=== PATIENT | female | born 1965 | race Caucasian/White ===

== ENCOUNTER 2020-01-08 12:26 | Emergency (ER) | payer OTHER, SELFPAY ==
[2020-01-08 12:30] VITALS: BMI 32.4
[2020-01-08 12:37] VITALS: BP 227/100; PULSE 59; RESP 16; TEMP 36.3; O2SAT 98
--- NOTE | 2020-01-08 12:51 | ED_ITS ---
HPI - Abdominal Pain General: Chief Complaint: Abdominal Pain Stated Complaint: abd pain Time Seen by Provider: 01/08/20 12:31 History of Present Illness: HPI narrative: 54-year-old female presents with complaints of right upper quadrant abdominal pain. She has had this intermittently for the last 6 months become progressively worse towards much more intense overnight it was extremely intense. She is not noticed any particular foods that seem to trigger it. She denies fever denies respiratory symptoms nausea but no vomiting no hematochezia melena hematemesis or coffee- ground emesis MD elicited complaint: abdominal pain Pertinent past history: other (Mild reflux) Onset (ago): month(s) (6 months increasing intensity) Pain Consistency: intermittent Location: RUQ Severity: severe Quality: cramping and aching Radiation: back Exacerbating factors: eating (The only food she is noted that causes trouble is mayonnaise) Associated Symptoms: Reports anorexia, bloating, GI cramping, heartburn and nausea; Denies chills, coffee ground emesis, diarrhea, dysuria, fever(s), hematemesis and vomiting Review of Systems Const: Denies: fever, chills, body aches, change in appetite, fatigue or malaise ENMT: Denies: throat pain, ear pain, nasal discharge or nasal congestion Card: Denies: chest pain, edema, shortness of breath on exertion or shortness of breath when lying down Resp: Denies: shortness of breath, productive cough or non-productive cough GI: Reports: abdominal pain, nausea, heartburn/indigestion, bloating and cramping; Denies: vomiting, vomiting blood, coffee grounds in vomit or diarrhea : Denies: flank pain, difficulty urinating, painful urination, urinary frequency or urinary urgency Skin/Breast: Denies: rash or itching PFSH ED PFSH: Social History Smoking and tobacco status: former smoker Physical Exam Const: COMMON NORMALS: no apparent distress GENERAL APPEARANCE: cooperative and comfortable ORIENTATION/CONSCIOUSNESS: Yes awake, Yes oriented to person, Yes oriented to place and Yes oriented to time HENMT: COMMON NORMALS: normocephalic, head/scalp atraumatic, hearing grossly normal bilaterally, external ears normal, EAC's normal, TM's normal bilaterally, nasal mucous membranes and turbinates normal, moist oral mucous membranes and oropharynx normal HEAD & SCALP: normocephalic and atraumatic NOSE: nasal mucous membranes and turbinates normal EXTERNAL EAR: Yes external ears normal EXTERNAL AUDITORY CANAL: EAC's normal TYMPANIC MEMBRANE: TM's normal bilaterally Eye: COMMON NORMALS: PERRL, EOMs intact bilaterally, conjunctivae normal and no scleral icterus CONJUNCTIVA: Yes conjunctivae normal PUPIL: Yes PERRL Neck/C-Spine: COMMON NORMALS: full ROM, no lymphadenopathy, supple and no JVD Lymph: LYMPHATIC: no lymphadenopathy noted and no lymphedema noted Resp: COMMON NORMALS: normal respiratory effort, no retractions, no use of accessory muscles and clear to auscultation bilaterally AUSCULTATION: clear to auscultation bilaterally Cardio: COMMON NORMALS: no JVD, regular rate, regular rhythm and no murmurs RATE: regular rate RHYTHM: regular rhythm GI: COMMON NORMALS: soft to palpation and no hepatosplenomegaly AUSCU LTATION: Yes normoactive bowel sounds PALPATION: Yes soft, No tender, No guarding and Yes no hepatosplenomegaly Extremity: COMMON NORMALS: normal to inspection, normal capillary refill, no clubbing, cyanosis or edema, no calf tenderness and no pedal edema Neuro: SENSORIUM/ORIENTATION: Yes oriented to person, Yes oriented to place and Yes oriented to time Skin: COMMON NORMALS: no rashes or lesions noted GENERAL SKIN EXAM: no rashes or lesions noted Course Vital Signs: Vital signs: Vital Signs Temperature 97.4 F L 01/08/20 12:37 Pulse Rate 74 01/08/20 17:26 Respiratory Rate 18 01/08/20 17:26 Blood Pressure 181/113 01/08/20 17:26 Pulse Oximetry 99 01/08/20 17:26 MDM - Abdominal Pain MDM Narrative: Medical decision making narrative: Patient has no acute findings on the CT. Pain is more superficial she remarks that her skin in the suppository in the right is actually numb she also notes she gets relief of the pain when she changes position position particularly by standing up there is no history of trauma. Reviewed the findings with her we will discharge her home on pain medications and get her set up with a primary care doctor for further follow-up she may need advanced imaging of the thoracic spine to rule out impinged thoracic nerve. Lab Data: Labs: Lab Results 01/08/20 01/08/20 01/08/20 Range/Units 13:02 13:02 13:54 WBC 6.5 (4.0-10.0) 10^3/ uL RBC 4.61 (4.1-5.3) 10^6/u L Hgb 14.8 (11.5-15.3) g/dL Hct 44.9 (37.0-47.0) % MCV 97.4 (81-99) fL MCH 32.1 (28.0-34.0) pg MCHC 33.0 (30.0-36.0) g/dL RDW 12.3 (12.1-15.1) % Plt Count 355 (130-400) 10^3/c mm MPV 9.6 (7.4-10.4) fL Neut % (Auto) 46.1 % Lymph % (Auto) 41.8 % [place] % (Auto) 9.4 % Eos % (Auto) 1.7 % Baso % (Auto) 0.8 % Neut # (Auto) 3.0 (1.8-7.7) 10^3/u L Lymph # (Auto) 2.7 (0.8-4.8) 10^3/u L [place] # (Auto) 0.6 (0.2-0.9) 10^3/u L Eos # (Auto) 0.1 (0.0-0.8) 10^3/u L Baso # (Auto) 0.1 (0.0-0.1) 10^3/u L Nucleated RBC % (a uto) 0 % Nucleated RBCs # 0.0 /100WBC Sodium 138 (136-145) mmol/L Potassium 4.1 (3.5-5.1) mmol/L Chloride 101 (98-107) mmol/L Carbon Dioxide 25 (22-29) mmol/L Anion Gap 16.1 (5-19) BUN 14 (6-20) mg/dL Creatinine 0.8 (0.5-0.9) mg/dL GFR Calculation 74.7 L (90-130) mL/min Glucose 106 (65-115) mg/dL Calculated Osmolal ity 283 L (285-295) mOsm/k g Calcium 10.2 (8.5-10.5) mg/dL Total Bilirubin 0.6 (0.15-1.2) mg/dL AST 24 (0-32) U/L ALT 24 (0-33) U/L Alkaline Phosphata se 56 (35-105) IU/L Total Protein 7.8 (6.6-8.7) g/dL Albumin 4.6 (3.5-5.2) g/dL Globulin 3.2 (1.3-4.6) g/dL Lipase 15 (13-60) U/L Urine Color Yellow (Yellow) Urine Appearance Clear (CLEAR) Urine pH 7 (5-7) Ur Specific Gravit y 1.010 (1.005-1.030) Urine Protein Neg (Negative) Urine Glucose (UA) Norm (Normal) Urine Ketones Negative (Negative) Urine Blood 2+ H (Negative) Urine Nitrate Negative (Negative) Urine Bilirubin Neg (NEGATIVE) Urine Urobilinogen Norm (Negative) mg/dL Ur Leukocyte Mariajose ase Negative (Negative) Urine RBC 5-10 H (0-2) /hpf Urine WBC 0-4 H (0-5) /hpf Ur Squamous Epith Cells 5-10 H (0-5) Urine Bacteria Trace (NONE) Discharge Plan Discharge Patient Disposition: Home, Self-Care Clinical Impression: Acute right flank pain Condition: Stable Prescriptions: New hydrocodone-acetaminophen 5-325 mg tablet 1 tab PO Q6H PRN (Reason: pain) Qty: 25 RF: 0 Zofran 4 mg tablet 4 mg PO Q6H PRN (Reason: nausea and vomiting) Qty: 20 RF: 0 No Action metoprolol tartrate 25 mg Tablet 25 mg PO DAILY RF: 0 Tylenol 325 mg Tablet 325 mg PO QID PRN (Reason: Pain) RF: 0 magnesium 200 mg Tablet 200 mg PO DAILY RF: 0 28 mg iron- 800 mcg Tablet 1 tab PO DAILY RF: 0 Discharge Orders: Discharge Order (Routine); Ordered 01/08/20 Ordered By: Wiliam Rivera Discharge Diet: Advance as tolerated Discharge Activity: Increase activity as tolerated Patient Instructions: Cholecystitis (ED), Abdominal Pain (ED) Discharge Date/Time: 01/08/20 17:26 Coding Level of Care Code ED Galley Stripper for Rebag Fwd Exam Comprehensive
--- NOTE | 2020-01-08 12:53 | US_ITS ---
WS: [id number] ULTRASOUND ABDOMEN LIMITED CLINICAL INFORMATION: Right upper quadrant abdominal pain COMPARISON: None. FINDINGS: Liver Size: Normal. Craniocaudal length: 13.4 cm. Echogenicity: Normal. Surface nodularity: None. Mass (size and location): None. Bile ducts Intrahepatic ducts: Normal. Common bile duct diameter: 0.3 cm. Gallbladder Normal. Gallstones: None. Gallbladder sludge: None. Gallbladder wall thickening: None. Pericholecystic fluid: None. Sonographic Ferrari sign: Absent. Pancreas Normal as visualized. Right kidney: Normal. Hydronephrosis: None. Size: 10.7 cm x 4.4 cm x 3.9 cm. Abdominal aorta and IVC Visualized portions are normal. Ascites: None. US/US gall bladder [id number] IMPRESSION: Normal abdominal ultrasound
[2020-01-08 13:08] LABS: Basophils # 0.1 10^3/uL (0.0-0.1); Basophils % 0.8 %; Eosinophils # 0.1 10^3/uL (0.0-0.8); Eosinophils % 1.7 %; Hematocrit 44.9 % (37.0-47.0); Hemoglobin 14.8 g/dL (11.5-15.3); Lymphocytes # 2.7 10^3/uL (0.8-4.8); Lymphocytes % 41.8 %; Mean Corpuscular Hemoglobin 32.1 pg (28.0-34.0); Mean Corpuscular Volume 97.4 fL (81-99); Mean Platelet Volume 9.6 fL (7.4-10.4); Monocytes # 0.6 10^3/uL (0.2-0.9); Monocytes % 9.4 %; Neutrophils % 46.1 %; Nucleated Red Blood Cells % 0 %; Platelet Count 355 10^3/cmm (130-400); Red Blood Count 4.61 10^6/uL (4.1-5.3); Red Cell Distribution Width 12.3 % (12.1-15.1); White Blood Count 6.5 10^3/uL (4.0-10.0)
[2020-01-08] MEDS: ondansetron 2 mg/ML SDV 2 mL 4 MG IVP (13:18)
[2020-01-08 13:19] VITALS: RESP 16
[2020-01-08] MEDS: sodium chloride 0.9% 1,000 ML 999 ML IV (13:19)
[2020-01-08] MEDS: morphine 4 mg/mL SDV 1 mL IVP (13:19)
[2020-01-08 13:21] LABS: Alanine Aminotransferase 24 U/L (0-33); Albumin Level 4.6 g/dL (3.5-5.2); Alkaline Phosphatase 56 IU/L (35-105); Anion Gap 16.1 (5-19); Aspartate Amino Transferase 24 U/L (0-32); Blood Urea Nitrogen 14 mg/dL (6-20); Calcium 10.2 mg/dL (8.5-10.5); Carbon Dioxide 25 mmol/L (22-29); Chloride 101 mmol/L (98-107); Creatinine Clr Calc Pharmacy 88.3043; Globulin 3.2 g/dL (1.3-4.6); Glomerular Filtration Rate 74.7 mL/min (90-130); Glucose 106 mg/dL (65-115); Lipase 15 U/L (13-60); Osmolality Calculated 283 mOsm/kg (285-295); Potassium 4.1 mmol/L (3.5-5.1); Sodium 138 mmol/L (136-145); Total Bilirubin 0.6 mg/dL (0.15-1.2); Total Protein 7.8 g/dL (6.6-8.7)
--- NOTE | 2020-01-08 13:32 | CTR_ITS ---
PROCEDURE INFORMATION: Exam: CT Abdomen And Pelvis With Contrast Exam date and time: 01/08/2020 2:36 PM Age: 54 years old Clinical indication: Abdominal pain; Localized; Right upper quadrant (ruq); Prior surgery; Surgery type: Oophorectomy; Patient HX: Severe ruq pain x 2 days; Additional info: Abd pain TECHNIQUE: Imaging protocol: Computed tomography of the abdomen and pelvis with intravenous contrast. Total DLP: 1297.6 mGy-cm Radiation optimization: All CT scans at this facility use at least one of these dose optimization techniques: automated exposure control; mA and/or kV adjustment per patient size (includes targeted exams where dose is matched to clinical indication); or iterative reconstruction. Contrast material: OMNI 300; Contrast volume: 95 ml; Contrast route: 22G; COMPARISON: US gall bladder [id number] 01/08/2020 1:03 PM FINDINGS: Liver: Normal. No mass. Gallbladder and bile ducts: Normal. No calcified stones. No ductal dilation. Pancreas: Normal. No ductal dilation. Spleen: Normal. No splenomegaly. Adrenals: Normal. No mass. Kidneys and ureters: 8.5 mm benign appearing cyst anterior aspect of right kidney. Stomach and bowel: Unremarkable. No obstruction. No mucosal thickening. Appendix: Normal appendix. Intraperitoneal space: Unremarkable. No free air. No significant fluid collection. Vasculature: Unremarkable. No abdominal aortic aneurysm. Lymph nodes: Unremarkable. No enlarged lymph nodes. Bladder: Unremarkable as visualized. Reproductive: Prior right oophorectomy. Bones/joints: Unremarkable. No acute fracture. Soft tissues: Unremarkable. CT/CT abdomen pelvis w con* [id number] IMPRESSION: No acute findings. COMMENTS: Consistent with the [employer]'s Incidental Findings Committee white paper (J Am Jenn Radiol 2018): Any incidental cystic renal lesion classified in this report as too small to characterize or simple appearing is likely a benign cyst. No follow-up imaging is recommended for these lesions per consensus recommendations based on imaging criteria. Radiation Dose CTDIVOL = (mGy): DLP = 1297.6 (mGy-cm)
[2020-01-08] MEDS: hyDRALAzine 20 mg/mL INJ 1 mL 10 MG IVP (14:10)
[2020-01-08 14:12] VITALS: BP 217/112; PULSE 67; RESP 18; O2SAT 98
[2020-01-08] MEDS: iohexol 300 mg/mL 100 mL Btl IV (14:59)
[2020-01-08 15:06] LABS: Protein Urine Neg (Negative); Urine Appearance Clear (CLEAR); Urine Color Yellow (Yellow); pH Urine 7 (5-7)
[2020-01-08 15:07] LABS: Add Urine Microscopic? YES; Bilirubin Urine Neg (NEGATIVE); Blood Urine 2+ (Negative); Glucose Urine UA Norm (Normal); Ketones Urine Negative (Negative); Leukocyte Esterase Urine Negative (Negative); Nitrate Urine Negative (Negative); Urobilinogen Urine Norm (Negative)
[2020-01-08 15:08] LABS: Bacteria Urine TRACE; WBC Urine 0-4 /hpf (0-5)
[2020-01-08 15:09] LABS: Add Urine Culture? Yes
[2020-01-08 15:48] VITALS: BP 171/96; PULSE 77; RESP 18; O2SAT 98
[2020-01-08 17:26] VITALS: BP 181/113; PULSE 74; RESP 18; O2SAT 99
--- NOTE | 2020-01-09 11:14 | DCPLANNER ---
patient care manager had message to speak with patient about getting established with a primary care physician. patient care manager called patient, unable to speak with patient at this time, and unable to leave a voicemail for patient.
== END 2020-01-08 17:26 | disposition home or self-care (01) ==
PROVIDERS: Emergency Provider Family Medicine
DX: R10.11 Right upper quadrant pain (principal); Z87.891 Personal history of nicotine dependence
CPT/HCPCS: 12345; 36415; 74177; 76705; 80053; 81001; 83690; 85025; 87086; 96361; 96374; 96375; 99282; 99284; J0360; J2270; J2405; J7030; Q9967

== ENCOUNTER → 2020-09-04 14:33 | Outpatient (BNVA) | payer OTHER, SELFPAY | PROVIDERS: Referring Provider Nurse Practitioner Primary Care; Visit Provider Podiatrist Foot & Ankle Surgery | DX: M25.571 Pain in right ankle and joints of right foot (principal) | CPT/HCPCS: 73630 ==

== ENCOUNTER 2022-03-28 18:06 | Emergency (ER) | payer BC, MEDICAID, SELFPAY ==
--- NOTE | 2022-03-28 18:35 | XRR_ITS ---
PROCEDURE INFORMATION: Exam: XR Chest Exam date and time: 03/28/2022 6:48 PM Age: 56 years old Clinical indication: Angina; Additional info: Cp TECHNIQUE: Imaging protocol: Radiologic exam of the chest. Views: 1 view. COMPARISON: CT abdomen pelvis w con* [id number] 01/08/2020 2:48 PM FINDINGS: Lungs: Calcified granuloma noted in the right lung base. No consolidation. Pleural spaces: Unremarkable. No pleural effusion. No pneumothorax. Heart/Mediastinum: Unremarkable. No cardiomegaly. Bones/joints: Unremarkable. XR/XR chest 1V portable [id number] IMPRESSION: No acute findings.
--- NOTE | 2022-03-28 18:35 | ECG_ITS ---
[facility] Test Date: 2022-03-28 Pat Name: Cherry Almonte Department: Room: Gender: Female Photograph Finisher: : 1965 Requested By: Jairo Gottlieb Order Number: [id number] Emily MD: Marquis Caal M.D. Measurements Intervals [place] Rate: 50 P: 46 KS: 177 QRS: -31 QRSD: 105 T: 36 QT: 453 QTc: 417 Interpretive Statements SINUS BRADYCARDIA LEFT AXIS DEVIATION [QRS AXIS < -30] No previous ECG available for comparison Electronically Signed On 03-29-2022 17:34:09 CDT by Marquis Caal M.D. [id number]
[2022-03-28 18:37] VITALS: BP 174/94; PULSE 58; O2SAT 98
--- NOTE | 2022-03-28 18:55 | ED_ITS ---
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 She began to have chest discomfort around 1130 this morning. It seemed to persist somewhat. She chewed an aspirin without much relief. It worsened around 3 or 4, so she called an ambulance. She is not short of breath. She did become nauseated. She did not get diaphoretic. She says that she felt cold. She denies cough, diarrhea, vomiting. She was given a nitroglycerin and aspirin in route with some improvement in her pain, but it is beginning to come back she says now. She says that she was hypertensive on EMS arrival, but this improved with nitroglycerin as well. MD complaint: chest pain Pertinent past history: other Onset (ago): hour(s) Timing of current episode: constant Onset: during rest Pain location: substernal Pain radiation: none Quality: tightness and dull Relieving factors: nitroglycerin Exacerbating factors: nothing Context: other Associated symptoms: Reports nausea; Deny abdominal pain, diaphoresis, dyspnea, fever(s), leg edema, palpitations or vomiting Treatment prior to arrival: aspirin and nitroglycerin Review of Systems Const: Denies: fever(s) or diaphoresis ENMT: Denies: throat pain Card: Reports: chest pain; Denies: palpitations or swelling of feet/ankles Resp: Denies: dyspnea, productive cough or non-productive cough GI: Reports: nausea; Denies: abdominal pain, vomiting or diarrhea Musc: Reports: back pain Skin/Breast: Denies: rash Neuro: Denies: headache(s) PFSH ED PFSH: Medical History History of ovarian cyst Hyperlipidemia Hypertension Surgical History History of foot surgery History of tubal ligation Family History (Updated 09/04/20 @ 14:49 by Karen Segura MA) Father Cancer Hypertension Stroke Grandfather Cancer Social History Smoking and tobacco status: former smoker Physical Exam Const: GENERAL APPEARANCE: cooperative HENMT: COMMON NORMALS: normocephalic, atraumatic and Normal external nose present HEAD & SCALP: normocephalic and atraumatic FACE & SINUS: normal facial exam and face symmetric NOSE: Normal external nose present Eye: COMMON NORMALS: Equal, round and reactive pupils present and EOMs intact bilaterally PUPIL: Yes Equal, round and reactive pupils present Chest: CHEST: Yes Symmetrical chest wall rise Resp: COMMON NORMALS: normal respiratory effort, No use of accessory muscles and clear to auscultation bilaterally AUSCULTATION: clear to auscultation bilaterally Cardio: COMMON NORMALS: regular rate and regular rhythm RATE: regular rate RHYTHM: regular rhythm GI: COMMON NORMALS: Normal to inspection, nondistended, normoactive bowel sounds present, Soft to palpation and non-tender PALPATION: Yes Soft to palpation Extremity: COMMON NORMALS: no pedal edema Neuro: TONI COMA SCALE: document GCS findings Toni coma scale eye opening: Spontaneous [place] coma scale verbal response: Orientated [place] coma scale motor response: Obey commands [place] coma scale total score: 15 Course Vital Signs: Vital signs: Vital Signs Pulse Rate 60 03/28/22 22:47 Respiratory Rate 16 03/28/22 22:47 Blood Pressure 158/79 03/28/22 22:47 Pulse Oximetry 97 03/28/22 22:47 MDM - Chest Pain Medical Decision Making 56-year-old female presenting with chest discomfort. Relieved after nitroglycerin and aspirin. Her blood pressure was quite high on EMS arrival. Its improved currently. Chest discomfort may be related to that. Her potassium was 3.3. this is repleated. Bicarbonate is 19. Other laboratory is benign. Her EKG shows a sinus rhythm and sinus bradycardia with normal ST segments. She does have a left axis deviation. Intervals are normal. Her troponin was 6 at baseline and 6 at 2 hours. Chest x-ray is nonacute. With improvement in her pain, no elevation in troponin, and x-ray findings appearing good, she will be allowed home Lab Data : 03/28/22 19:10 03/28/22 19:10 Radiology Impressions Chest X-Ray 03/28/22 18:35 IMPRESSION: No acute findings. Laboratory Results WBC 8.3 10^3/uL (4.0-10.0) 03/28/22 19:10 RBC 4.00 10^6/uL (4.1-5.3) L 03/28/22 19:10 Hgb 13.5 g/dL (11.5-15.3) 03/28/22 19:10 Hct 37.9 % (37.0-47.0) 03/28/22 19:10 MCV 94.8 fl (81-99) 03/28/22 19:10 MCH 33.8 pg (28.0-34.0) 03/28/22 19:10 MCHC 35.6 g/dL (30.0-36.0) 03/28/22 19:10 RDW 12.9 % (12.1-15.1) 03/28/22 19:10 Plt Count 273 10^3/cmm (130-400) 03/28/22 19:10 MPV 9.9 fL (7.4-10.4) 03/28/22 19:10 Neut % (Auto) 69.9 % 03/28/22 19:10 Lymph % (Auto) 20.8 % 03/28/22 19:10 [place] % (Auto) 7.6 % 03/28/22 19:10 Eos % (Auto) 1.0 % 03/28/22 19:10 Baso % (Auto) 0.5 % 03/28/22 19:10 Neut # (Auto) 5.80 10^3/uL (1.8-7.7) 03/28/22 19:10 Lymph # (Auto) 1.7 10^3/uL (0.8-4.8) 03/28/22 19:10 [place] # (Auto) 0.6 10^3/uL (0.2-0.9) 03/28/22 19:10 Eos # (Auto) 0.1 10^3/uL (0.0-0.8) 03/28/22 19:10 Baso # (Auto) 0.0 10^3/uL (0.0-0.1) 03/28/22 19:10 Nucleated RBC % (auto) 0 % 03/28/22 19:10 Nucleated RBCs # 0.0 /100WBC 03/28/22 19:10 PT 13.50 SECONDS (12.1-14.9) 03/28/22 19:10 INR 1.00 (0.8-1.2) 03/28/22 19:10 APTT 28.3 SECONDS (23.9-36.7) 03/28/22 19:10 Sodium 137 mmol/L (136-145) 03/28/22 19:10 Potassium 3.3 mmol/L (3.5-5.1) L 03/28/22 19:10 Chloride 106 mmol/L (98-107) 03/28/22 19:10 Carbon Dioxide 19 mmol/L (22-29) L 03/28/22 19:10 Anion Gap 15.3 (5-19) 03/28/22 19:10 BUN 12 mg/dL (6-20) 03/28/22 19:10 Creatinine 0.6 mg/dL (0.5-0.9) 03/28/22 19:10 GFR Calculation 103.4 mL/min (90-130) 03/28/22 19:10 Glucose 95 mg/dL (65-115) 03/28/22 19:10 Calculated Osmolality 284 mOsm/kg (285-295) L 03/28/22 19:10 Calcium 7.6 mg/dL (8.5-10.5) L 03/28/22 19:10 Total Bilirubin 0.3 mg/dL (0.15-1.2) 03/28/22 19:10 AST 13 U/L (0-32) 03/28/22 19:10 ALT 9 U/L (0-33) 03/28/22 19:10 Alkaline Phosphatase 39 IU/L (35-105) 03/28/22 19:10 Creatine Kinase 43 U/L (26-192) 03/28/22 19:10 Troponin T Baseline 6 ng/L (0-10) 03/28/22 19:10 Troponin T 120 Minute 6.00 ng/L (0-10) 03/28/22 21:07 Delta Troponin T 0 ABS# (0-10) 03/28/22 21:07 NT-Pro-B Natriuret Pep 55 pg/mL (0-125) 03/28/22 19:10 Total Protein 5.4 g/dL (6.6-8.7) L 03/28/22 19:10 Albumin 3.3 g/dL (3.5-5.2) L 03/28/22 19:10 Globulin 2.1 g/dL (1.3-4.6) 03/28/22 19:10 Discharge Plan Discharge Patient Disposition: Home Clinical Impression: Chest pain, Hypertension Condition: Stable Prescriptions: No Action Tylenol 325 mg Tablet 325 mg PO QID PRN (Reason: Pain) 0RF magnesium 200 mg Tablet 200 mg PO DAILY 0RF 28 mg iron- 800 mcg Tablet 1 tab PO DAILY 0RF hydrocodone-acetaminophen 5-325 mg tablet 1 tab PO Q6H PRN (Reason: pain) Qty: 25 0RF Zofran 4 mg tablet 4 mg PO Q6H PRN (Reason: nausea and vomiting) Qty: 20 0RF metoprolol tartrate 25 mg tablet 50 mg PO DAILY 0RF Discharge Orders: Discharge ED (Routine); Ordered 03/28/22 Ordered By: Jairo Morel Patient Instructions: Chest Pain (ED), Hypertension (ED) Activity Restrictions/Additional Instructions: Return for worsening chest pain, shortness of breath, fever, any other symptoms. Case management order has been placed to obtain an outpatient stress test for you. You should get a call from them next week to set this up. Coding Level of Care Code ED Paint Stripper for Chg Fwd Exam Comprehensive
[2022-03-28] MEDS: nitroglycerin 1 gm/inch oint Pkt 1.5 INCH TOPICAL (19:14)
[2022-03-28 19:15] LABS: Basophils % 0.5 %; Eosinophils # 0.1 10^3/uL (0.0-0.8); Hematocrit 37.9 % (37.0-47.0); Hemoglobin 13.5 g/dL (11.5-15.3); Lymphocytes # 1.7 10^3/uL (0.8-4.8); Lymphocytes % 20.8 %; Mean Corpuscular HGB Conc 35.6 g/dL (30.0-36.0); Mean Corpuscular Hemoglobin 33.8 pg (28.0-34.0); Mean Corpuscular Volume 94.8 fl (81-99); Mean Platelet Volume 9.9 fL (7.4-10.4); Monocytes # 0.6 10^3/uL (0.2-0.9); Monocytes % 7.6 %; Neutrophils % 69.9 %; Nucleated Red Blood Cells % 0 %; Platelet Count 273 10^3/cmm (130-400); Red Cell Distribution Width 12.9 % (12.1-15.1); White Blood Count 8.3 10^3/uL (4.0-10.0)
[2022-03-28] MEDS: lidocaine 2% viscous 15 ML, aluminum-mag hydrox-simethicon 30 ML, sucralfate oral liq 1 GM PO (19:15)
[2022-03-28 19:32] LABS: Partial Thromboplastin Time 28.3 SECONDS (23.9-36.7)
[2022-03-28 19:37] LABS: Troponin(5th) Baseline 6 ng/L (0-10)
[2022-03-28 19:46] LABS: Alanine Aminotransferase 9 U/L (0-33); Albumin Level 3.3 g/dL (3.5-5.2); Alkaline Phosphatase 39 IU/L (35-105); Aspartate Amino Transferase 13 U/L (0-32); Blood Urea Nitrogen 12 mg/dL (6-20); Calcium 7.6 mg/dL (8.5-10.5); Carbon Dioxide 19 mmol/L (22-29); Chloride 106 mmol/L (98-107); Creatine Phosphokinase 43 U/L (26-192); Globulin 2.1 g/dL (1.3-4.6); Glomerular Filtration Rate 103.4 mL/min (90-130); Glucose 95 mg/dL (65-115); NT Pro B Type Natriuretic Pept 55 pg/mL (0-125); Osmolality Calculated 284 mOsm/kg (285-295); Sodium 137 mmol/L (136-145); Total Bilirubin 0.3 mg/dL (0.15-1.2); Total Protein 5.4 g/dL (6.6-8.7)
[2022-03-28 19:55] LABS: Anion Gap 15.3 (5-19); Potassium 3.3 mmol/L (3.5-5.1)
[2022-03-28 20:05] VITALS: BP 165/81; PULSE 64; RESP 16; O2SAT 97
[2022-03-28] MEDS: ondansetron 2 mg/ML SDV 2 mL 4 MG IVP (21:15)
[2022-03-28] MEDS: potassium chloride oral liq 20 mEq/15 mL UDC 40 MEQ PO (21:15)
[2022-03-28 21:50] LABS: Troponin 5 2HR Delta 0 ABS# (0-10)
[2022-03-28 22:27] VITALS: BP 158/79; PULSE 60; RESP 16; O2SAT 97
[2022-03-28 22:47] VITALS: BP 158/79; PULSE 60; RESP 16; O2SAT 97
--- NOTE | 2022-04-07 13:42 | DCPLANNER ---
Addendum entered by Re Joe 04/13/22 13:03: Patient returned case resource manager phone call. program manager environmental planning was told that patient does not want the stress test at this time, and that she has followed up with her primary care physician. Original Note: program manager environmental planning had message to schedule an outpatient stress test for patient. program manager environmental planning called patient to confirm that patient wanted the stress test and to confirm who patient sees for primary care. program manager environmental planning called phone number [phone], unable to speak with patient at this time, a voicemail was left for patient to return case resource manager phone call.
== END 2022-03-28 22:52 | disposition home or self-care (01) ==
PROVIDERS: Emergency Provider Emergency Medicine
DX: R07.9 Chest pain, unspecified (principal); I10 Essential (primary) hypertension; E78.5 Hyperlipidemia, unspecified; Z87.891 Personal history of nicotine dependence
CPT/HCPCS: 71045; 80053; 82550; 83880; 84484; 85025; 85610; 85730; 93005; 96374; 99285; J2405

== ENCOUNTER 2023-12-02 12:56 | Outpatient (CLI) | payer OTHER, SELFPAY ==
--- NOTE | 2023-12-02 13:10 | CT_ITS ---
WS: [id number] LDCT LUNG CANCER SCREENING HISTORY: HX OF TOBACCO USE TECHNIQUE: Axial imaging performed from the apices to 1 cm below the costophrenic angles. Coronal and sagittal reformats are submitted with axial MIP series. All CT scans at [facility] use at least one of these dose optimization techniques: automated exposure control; mA and/or kV adjustment per patient size (includes targeted exams where dose is matched to clinical indication); or iterativ e reconstruction. DLP: 76.69 mGy.cm DIvol: Mean CTDIvol: 1.70 (mGy) COMPARISON: None available. Diagnostic quality: Satisfactory Lungs: Centrilobular emphysema. Paraseptal emphysematous changes to have also present. Bilateral calc ified granulomata. No mass or nodule. No pneumonia or endobronchial lesions. Heart: Normal size heart with no pericardial effusion.. Other findings: Mild atherosclerosis aorta. Calcified lymph nodes in the hilar regions. Hilar regions are difficult to evaluate without IV contrast. No adrenal mass. IMPRESSION: CT/CT lung screening [id number] LUNG-RADS: 1-Negative FOLLOW UP: 12 Month: Continue annual screening with LDCT OTHER FINDINGS (S MODIFIER): None.
== END 2023-12-02 12:57 | disposition home or self-care (01) ==
LOC: RAD 12:57
PROVIDERS: PCP Nurse Practitioner Primary Care; Visit Provider Nurse Practitioner Family
DX: I70.0 Atherosclerosis of aorta (principal); Z87.891 Personal history of nicotine dependence
CPT/HCPCS: 71271

== ENCOUNTER 2024-01-18 08:23 | Day surgery (SDC) | payer OTHER, SELFPAY ==
[2024-01-18 08:35] VITALS: BMI 29.1
[2024-01-18 08:38] VITALS: BP 177/100; PULSE 55; RESP 18; TEMP 36.2; O2SAT 98
[2024-01-18] MEDS: sodium chloride 0.9% 1,000 ML 30 ML IV (08:46)
--- NOTE | 2024-01-18 09:17 | ANES.PREANE2 ---
Pre-Anesthetic Assessment Height/Weight: Height 1.65 m Weight 79.379 kg Temp Pulse Resp BP Pulse Ox O2 Del Method 97.1 F L 55 L 18 177/100 98 Room Air 01/18/24 08:38 01/18/24 08:38 01/18/24 08:38 01/18/24 08:38 01/18/24 08:38 01/18/24 08:38 Preop Diagnosis: screening Operation Date: 01/18/24 09:30 Proposed Procedures p [id number] G0105 Colon Z12.11(Not Applicable) - Ibrahima Swanson, DO Was Beta Juliette taken within 24 hours: Yes Was Clonidine taken within 24 hours: N/A Last intake: Intake Last Liquid Date 01/17/24 Last Liquid Time 20:00 Last Solid Date 01/16/24 Last Solid Time 23:45 Social No alcohol and No tobacco marijuana every night Exam alert, oriented x 3, clear to auscultation bilaterally and regular rate & rhythm Airway Submandibular: within normal limits Cervical ROM: within normal limits Mallampati: Class I Comments: Comments: dentures out, no loose teeth History/ROS No significant history except as noted Pulmonary None reported CV/HEM Hypertension None reported Hepatic None reported GI None reported Metabolic Hyperlipidemia Musc/skel None reported Neuropsych Anxiety Anesthetic Plan ASA status: 2 Anesthesia: Anesthesia Evaluation and MAC Risk of > 500 ml blood loss (7ml/kg in children): Yes, adequate IV access and fluids planned Medications/Allergies Home Medications Medication Instructions Recorded Confirmed Last Taken Type acetaminophen 325 mg tablet 325 mg PO QID PRN Pain 01/08/20 01/18/24 01/16/24 History (Tylenol) metoprolol tartrate 25 mg tablet 100 mg PO DAILY 09/04/20 01/18/24 01/18/24 History Collagen Skin Renewal 1,200 mg PO ONCE 01/16/24 01/18/24 01/16/24 History atorvastatin 10 mg tablet 10 mg PO BEDTIME 01/16/24 01/18/24 01/16/24 History coenzyme Q10 300 mg capsule (Co 300 mg PO DAILY 01/16/24 01/18/24 01/16/24 History Q-10) vitamin K2 100 mcg capsule 100 mcg PO DAILY 01/16/24 01/18/24 01/16/24 History Allergies Allergy/AdvReac Type Severity Reaction Status Date / Time codeine Allergy ADR-Nausea Verified 01/18/24 08:35 Current Medications Generic Name Dose Route Start Last Admin Trade Name Freq PRN Reason Stop Dose Admin Sodium Chloride 1,000 mls @ 30 mls/hr 01/18/24 08:30 01/18/24 08:46 Sodium Chloride 0.9% IV 01/19/24 08:29 30 mls/hr .Q24H DAHLIA Administration PFSH Anesthesia Medical History Hyperlipidemia Hypertension History of ovarian cyst Surgical History History of foot surgery History of tubal ligation Family History Father Cancer Hypertension Stroke Grandfather Cancer Social History (Updated 01/16/24 @ 11:34 by Larisa Hobbs RN) Smoking and tobacco/nicotine status: former use of tobacco/nicotine Substance/Drug Use: current Substance/Drug use frequency: daily Substance/Drug use type: Marijuana Other substance/drug use details: PER PT HAS MEDICAL CARD Data Anesthesia Cardiac Studies: No Data to Display
--- NOTE | 2024-01-18 10:01 | PM.HP ---
Providers/Chief Complaint Primary Care Provider: Nat Horton ADMINISTRATIVE UNDERWRITER Chief Complaint: Z12.11 History of Present Illness Cherry Almonte is a 58 year old female Review of Systems General: Reports: 10 or more systems reviewed and unremarkable except in HPI and below Medications/Allergies Home Medications Medication Instructions Recorded Confirmed Last Taken Type acetaminophen 325 mg tablet 325 mg PO QID PRN Pain 01/08/20 01/18/24 01/16/24 History (Tylenol) metoprolol tartrate 25 mg tablet 100 mg PO DAILY 09/04/20 01/18/24 01/18/24 History Collagen Skin Renewal 1,200 mg PO ONCE 01/16/24 01/18/24 01/16/24 History atorvastatin 10 mg tablet 10 mg PO BEDTIME 01/16/24 01/18/24 01/16/24 History coenzyme Q10 300 mg capsule (Co 300 mg PO DAILY 01/16/24 01/18/24 01/16/24 History Q-10) vitamin K2 100 mcg capsule 100 mcg PO DAILY 01/16/24 01/18/24 01/16/24 History Allergies Allergy/AdvReac Type Severity Reaction Status Date / Time codeine Allergy ADR-Nausea Verified 01/18/24 08:35 PFSH Acute PFSH: Medical History Hyperlipidemia Hypertension History of ovarian cyst Surgical History History of foot surgery History of tubal ligation Family History Father Cancer Hypertension Stroke Grandfather Cancer Social History (Updated 01/16/24 @ 11:34 by Larisa Hobbs RN) Smoking and tobacco/nicotine status: former use of tobacco/nicotine Substance/Drug Use: current Substance/Drug use frequency: daily Substance/Drug use type: Marijuana Other substance/drug use details: PER PT HAS MEDICAL CARD Vitals/I&O/Wt Last Vital Signs Temp 97.1 F L 01/18/24 08:38 Pulse 55 L 01/18/24 08:38 Resp 18 01/18/24 08:38 BP 177/100 01/18/24 08:38 Pulse Ox 98 01/18/24 08:38 O2 Del Method Room Air 01/18/24 08:38 Weight last 48 hrs Weight 175 lb A&P Assessment and plan (1) Positive colorectal cancer screening using Cologuard test: Plan Colonoscopy Attestations Medical Necessity Statement*: Home Coding Level of Care Code Acute Code for Chg Fwd Diagnoses Positive colorectal cancer screening using Cologuard test R19.5
[2024-01-18 10:20] VITALS: BP 145/92; PULSE 69; RESP 14; TEMP 36.1; O2SAT 100
[2024-01-18 10:41] VITALS: BP 145/90; PULSE 64; RESP 16; O2SAT 100
--- NOTE | 2024-01-18 14:07 | ANE.PACU2 ---
Inpatient post-anesthesia follow up: Vital signs: Temperature 97 F Pulse Rate 64 Respiratory Rate 16 Blood Pressure 145/90 Pulse Oximetry 100 Oxygen Delivery Me thod Room Air Oxygen Flow Rate Fraction of Inspir ed Oxygen Hydration adequate: Yes Nausea and vomiting: No Mental status: Baseline Additional Comments: no known anesthetic complications noted
== END 2024-01-18 11:00 | disposition home or self-care (01) ==
PROVIDERS: PCP Nurse Practitioner Primary Care; Visit Provider Surgery
PROC: 0DJD8ZZ Inspection of Lower Intestinal Tract, Via Natural or Artificial Opening Endoscopic (ICD-10-PCS; CPT 45378; principal; 2024-01-18 09:30)
DX: Z12.11 Encounter for screening for malignant neoplasm of colon (principal); D12.8 Benign neoplasm of rectum; K57.30 Diverticulosis of large intestine without perforation or abscess without bleeding; E78.5 Hyperlipidemia, unspecified; I10 Essential (primary) hypertension; Z87.891 Personal history of nicotine dependence
CPT/HCPCS: 45385; 88305; J2704; J3490; J7030